=== PATIENT | male | born 1995 | race Caucasian/White ===

== ENCOUNTER 2017-01-17 10:27 | Emergency (ER) | payer SELFPAY ==
[2017-01-17 10:31] VITALS: BP 117/87; BMI 22.5
--- NOTE | 2017-01-17 11:13 | DR.GENAD ---
HPI - PCP Primary Care Physician: NFD - HPI Comment HPI Comment: WORSE TODAY. COUGHING AND CONGESTED. - Complaint/Symptoms Chief Complaint Doctors Comments: FEVER, BODYACHE, SORE THROAT AND HEADACHE TIMES FEW DAYS. Chief Complaint:: PT. C/O BODY ACHES, SORE THROAT, FEVER, NAUSEA. - Nurses notes reviewed Nurses Notes Review: Yes - Source History Provided: Patient - Mode of Arrival Mode of Arrival: Ambulatory - Timing Onset of Chief Complaint: 01/14/17 Came on: Suddenly - Duration Duration: Constant Duration: Days - Severity Severity: Moderate PMH - PMH Past Medical History: No Past Surgical History: No Surgical History: No History - Family History History of Family Medical Conditions: Yes Family Medical History: Diabetes Mellitus - Social History Does patient currently use any type of tobacco product: Yes Have you used tobacco products in the last 12 months: Yes Type of Tobacco Use: Cigarettes Does any household member use tobacco: No Alcohol Use: None Do you use any recreational Drugs:: No Lives With: Friend Lives Where: Home - infectious screening In the last 2 months have you had wt loss of >10#?: NO Have you had fever, night sweats or hemotysis?: No Have you traveled outside the country in the last 6 months?: No Isolation: Standard ROS - Review of Systems Constitutional: Chills, Fever, Weakness, Fatigue Eyes: No Symptoms Reported ENTM: Ear Pain, Nose Discharge, Nose Congestion, Throat Pain Respiratoy: Productive Cough, Short of Breath. negative: Wheezing, Hemoptysis Cardiovascular: Chest Pain Gastrointestinal/Abdominal: Nausea Genitourinary: No Symptoms Reported Neurological: Headache, Weakness, Dizziness Musculoskeletal: Muscle Pain Integumentary: Dryness Hematologic/Lymphatic: No Symptoms Reported Endocrine: No Symptoms Reported All Other Systems: Reviewed and Negative PE - Vital Signs Vitals: Temperature 99.0 F Pulse Rate 109 Respiratory Rate 16 Blood Pressure 117/87 O2 Sat by Pulse Oximetry 100 - General Limitations: No Limitations General Appearance: Alert - Head Head Exam: Normal Inspection - Eyes Eye exam: Normal Appearance - ENT ENT Exam: Normal External Ear Exam External Ear Exam: Normal External Inspection TM/Canal Exam: Bilateral Normal Nose Exam: Normal Nose Exam Mouth Exam: Normal Inspection Throat Exam: Tonsillar Erythema - Neck Neck Exam: Trachea Midline. negative: Tenderness, Meningismus, Lymphadenopathy - Chest Chest Inspection: Symmetric Chest Wall Rise - Respiratory Respiratory Exam: Normal Lung Sounds Bilat Respiratory Exam: Bilateral Rhonchi, Lower Rhonchi - Cardiovascular Cardiovascular Exam: Regular Rate, Normal Rhythm, Normal Heart Sounds - Abdominal Exam Abdominal Exam: Normal Bowel Sounds, Soft. negative: Tenderness - Extremities Extremities Exam: Normal Inspection - Back Back Exam: Normal Inspection - Neurologic Neurological Exam: Alert, Oriented X3 - Psychiatric Psychiatric Exam: Anxious - Skin Skin Exam: Normal Color MDM - Additional Information Additional Information Obtained From: Family - Differential Diagnosis Differential Diagnosis: PNEUMONIA, BRONCHITIS, FEVER, UTI, FLU Course - Treatment Treatment: SEE ORDERS - Education/Counseling Education/Counseling: Patient, Family, Education Educated On: Treatment, Diagnosis, Needs for Follow Up ROR - Labs Reviewed Laboratory Results Reviewed?: Yes Result Diagrams: 01/17/17 11:30 01/17/17 11:30 Laboratory: 01/17/17 11:50 Throat Throat Culture - Preliminary WBC 8.6 X10^3/uL (3.6-10.0) 01/17/17 11:30 RBC 5.24 X10^6/uL (4.7-6.0) 01/17/17 11:30 Hgb 16.2 g/dL (13.5-18.0) 01/17/17 11:30 Hct 46.0 % (42.0-54.0) 01/17/17 11:30 MCV 87.8 fL (80.0-100.0) 01/17/17 11:30 MCH 30.8 pg (27.0-34.0) 01/17/17 11:30 MCHC 35.1 g/dL (33.0-35.0) H 01/17/17 11:30 RDW 12.6 % (11.6-16.5) 01/17/17 11:30 Plt Count 143 X10^3/uL (150.0-450.0) L 01/17/17 11:30 MPV 9.0 fL (7.4-11.0) 01/17/17 11:30 Neut % 78.7 % (42.0-75.0) H 01/17/17 11:30 Lymph % 11.0 % (21.0-51.0) L 01/17/17 11:30 [place] % 9.5 % (0.0-13.0) 01/17/17 11:30 Eos % 0.5 % (0.9-2.9) L 01/17/17 11:30 Baso % 0.3 % (0.2-1.0) 01/17/17 11:30 Neut # 6.7 x10^3/uL (2.2-4.8) H 01/17/17 11:30 Lymph # 0.9 X10^3/uL (1.3-2.9) L 01/17/17 11:30 [place] # 0.8 x10^3/uL (0.3-0.8) 01/17/17 11:30 Eos # 0.0 x10^3/uL (0.0-0.2) 01/17/17 11:30 Baso # 0.0 X10^3/uL (0.0-0.1) 01/17/17 11:30 Absolute Nucleated RBC 0.1 /100WBC 01/17/17 11:30 Sodium 141 mmol/L (136-145) 01/17/17 11:30 Corrected Sodium TNP 01/17/17 11:30 Potassium 4.5 mmol/L (3.5-5.1) 01/17/17 11:30 Chloride 102 mmol/L (98-107) 01/17/17 11:30 Carbon Dioxide 29.7 mmol/L (21-32) 01/17/17 11:30 BUN 10 mg/dL (7-18) 01/17/17 11:30 Creatinine 1.09 mg/dL (0.70-1.30) 01/17/17 11:30 Est GFR (MDRD) Af Amer > 60 (>60) 01/17/17 11:30 Est GFR (MDRD) Non-Af > 60 (>60) 01/17/17 11:30 Glucose 106 mg/dL (65-99) H 01/17/17 11:30 Calcium 8.7 mg/dL (8.5-10.1) 01/17/17 11:30 Corrected Calcium TNP 01/17/17 11:30 Total Bilirubin 0.40 mg/dL (0.2-1.0) 01/17/17 11:30 AST 24 Units/L (15-37) 01/17/17 11:30 ALT 35 Units/L (12-78) 01/17/17 11:30 Alkaline Phosphatase 77 Units/L (75-270) 01/17/17 11:30 Total Protein 7.7 g/dL (6.4-8.2) 01/17/17 11:30 Albumin 4.1 g/dL (3.4-5.0) 01/17/17 11:30 Globulin 3.6 g/dL (2.5-4.5) 01/17/17 11:30 Albumin/Globulin Ratio 1.1 Ratio (1.1-2.1) 01/17/17 11:30 Specimen Type Clean catch urine 01/17/17 11:29 Urine Color Yellow (YELLOW) 01/17/17 11:29 Urine Appearance Hazy (CLEAR) 01/17/17 11:29 Urine pH 7.0 (5.0 - 8.0) 01/17/17 11:29 Ur Specific [place] 1.010 (1.000-1.030) 01/17/17 11:29 Urine Protein Negative (NEGATIVE) 01/17/17 11:29 Urine Glucose (UA) Negative (NEGATIVE) 01/17/17 11:29 Urine Ketones Negative (NEGATIVE) 01/17/17 11:29 Urine Occult Blood 1+ (NEGATIVE) 01/17/17 11:29 Urine Nitrite Negative (NEGATIVE) 01/17/17 11:29 Urine Bilirubin Negative (NEGATIVE) 01/17/17 11:29 Urine Urobilinogen Normal (NORMAL) 01/17/17 11:29 Ur Leukocyte Esterase Negative (NEGATIVE) 01/17/17 11:29 Urine RBC 0-2 /HPF (NEGATIVE) 01/17/17 11:29 Urine WBC 10-12 /HPF (NEGATIVE) 01/17/17 11:29 Ur Squamous Epith Cells Rare /HPF (NEGATIVE) 01/17/17 11:29 Urine Bacteria Trace /HPF (NEGATIVE) 01/17/17 11:29 Ur Culture Indicated? No/not indicated 01/17/17 11:29 Influenza A (H1N1) PCR Not detected (NOT DETECT) 01/17/17 11:00 Influenza Type A (PCR) Positive (NEGATIVE) A 01/17/17 11:00 Influenza Type B (PCR) Negative (NEGATIVE) 01/17/17 11:00 Streptococcus Screen Negative (NEGATIVE) 01/17/17 11:50 - XRAY XRAY Interpreted by: Radiologist XRAY Findings: REPORT DISCUSS WITH PATIENT. - Diagnosis Discharge Problem: Influenza UTI (urinary tract infection) Qualifiers: Urinary tract infection type: urethritis Qualified Code(s): N34.2 - Other urethritis - Discharge Plan Disposition: 01 HOME, SELF-CARE Condition: Stable Prescriptions: Ibuprofen [MOTRIN TAB 600 MG *] 600 mg PO TID PRN #60 tab PRN Reason: Pain/Inflammation Oseltamivir Phosphate [Tamiflu] 75 mg PO BID #10 cap Sulfamethoxazole-Trimethoprim [BACTRIM DS TAB 800/160 MG *] 1 tab PO BID #20 tab - Follow ups/Referrals Follow ups/Referrals: NFD,None [Primary Care Provider] - 3 days - Instructions Instructions: Urinary Tract Infection, Influenza, Adult, [id number] Additional Instructions: RETURN TO ED IF WORSE.
[2017-01-17 11:45] LABS: BILIRUBIN,URINE NEGATIVE (NEGATIVE); BLOOD/HEMOGLOBIN,URINE 1+ (NEGATIVE); GLUCOSE, URINE NEGATIVE (NEGATIVE); KETONES,URINE NEGATIVE (NEGATIVE); LEUKOCYTE ESTERASE ,URINE NEGATIVE (NEGATIVE); NITRITES,URINE NEGATIVE (NEGATIVE); PROTEIN,URINE NEGATIVE (NEGATIVE); UROBILINOGEN,URINE NORMAL (NORMAL)
[2017-01-17 11:51] LABS: APPEARANCE,URINE HAZY (CLEAR); COLOR,URINE YELLOW (YELLOW)
[2017-01-17 11:52] LABS: BACTERIA,URINE TRACE /HPF (NEGATIVE); RBC,URINE 0-2 /HPF (NEGATIVE); SQUAMOUS EPITHELIAL CELL,UR RARE /HPF (NEGATIVE)
[2017-01-17 12:07] LABS: BASOPHILS % (AUTO) 0.3 % (0.2-1.0); EOSINOPHILS % (AUTO) 0.5 % (0.9-2.9); HEMOGLOBIN 16.2 g/dL (13.5-18.0); LYMPHOCYTES # (AUTO) 0.9 X10^3/uL (1.3-2.9); MEAN CORPUSCULAR HEMOGLOBIN 30.8 pg (27.0-34.0); MEAN CORPUSCULAR HGB CONC 35.1 g/dL (33.0-35.0); MEAN CORPUSCULAR VOLUME 87.8 fL (80.0-100.0); MONOCYTES # (AUTO) 0.8 x10^3/uL (0.3-0.8); MONOCYTES % (AUTO) 9.5 % (0.0-13.0); NEUTROPHILS # (AUTO) 6.7 x10^3/uL (2.2-4.8); NEUTROPHILS % (AUTO) 78.7 % (42.0-75.0); PLATELET COUNT 143 X10^3/uL (150.0-450.0); RED BLOOD COUNT 5.24 X10^6/uL (4.7-6.0); RED CELL DISTRIBUTION WIDTH 12.6 % (11.6-16.5); WHITE BLOOD COUNT 8.6 X10^3/uL (3.6-10.0)
[2017-01-17 12:14] LABS: ALANINE AMINOTRANSFERASE 35 Units/L (12-78); ALBUMIN 4.1 g/dL (3.4-5.0); ALKALINE PHOSPHATASE 77 Units/L (75-270); ASPARTATE AMINO TRANSFERASE 24 Units/L (15-37); BLOOD UREA NITROGEN 10 mg/dL (7-18); CALCIUM 8.7 mg/dL (8.5-10.1); CARBON DIOXIDE 29.7 mmol/L (21-32); CHLORIDE 102 mmol/L (98-107); CREATININE 1.09 mg/dL (0.70-1.30); GLUCOSE 106 mg/dL (65-99); SODIUM 141 mmol/L (136-145); TOTAL PROTEIN 7.7 g/dL (6.4-8.2); eGFR BLACK RACES > 60 (>60); eGFR NON BLACK RACES > 60 (>60)
--- NOTE | 2017-01-17 12:34 | RAD ---
HISTORY: Fever, chest pain Study: chest one view Comparison: None Findings: The trachea is midline. The cardiac silhouette is unremarkable. The lungs are clear without focal infiltrate or effusion. The bony thorax is unremarkable. IMPRESSION: 1. No acute cardiopulmonary disease. Reported By:
== END 2017-01-17 12:56 | disposition home or self-care (01) ==
LOC: ER 10:38
DX: J11.1 Influenza due to unidentified influenza virus with other respiratory manifestations (principal); N34.2 Other urethritis
CPT/HCPCS: 36415; 71010; 80053; 81001; 85025; 87070; 87502; 87503; 87880; 99282; 99283

== ENCOUNTER 2017-04-10 23:31 | Emergency (ER) | payer OTHER ==
[2017-04-10] MEDS ORDERED: ZOFRAN TAB 4 MG PO ONE (23:59)
[2017-04-11 00:01] VITALS: BP 132/90; BMI 22.7
[2017-04-11] MEDS ORDERED: ZOFRAN TAB 4 MG ONE (00:01)
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
== END 2017-04-11 01:00 | disposition home or self-care (01) ==
LOC: ER 23:31
DX: S00.531A Contusion of lip, initial encounter (principal); S00.83XA Contusion of other part of head, initial encounter; V48.0XXA Car driver injured in noncollision transport accident in nontraffic accident, initial encounter
CPT/HCPCS: 70486; 99282; 99283; S0181